=== PATIENT | male | born 1945 | race Caucasian/White ===

== ENCOUNTER 2016-12-26 14:53 | Outpatient (CLI) | payer MEDICARE ==
--- NOTE | 2016-12-26 18:31 | RAD ---
TWO VIEWS OF THE CHEST: 12/26/2016 COMPARISON: None. HISTORY: Hypertension. FINDINGS: No pneumothorax, pleural fluid, focal consolidation, or alveolar edema. The lungs are mildly hyperi nflated. No acute osseous abnormalities. IMPRESSION: Mild pulmonary hyperinflation with no lobar consolidation or alveolar edema. POS: [facility]
== END 2016-12-26 14:54 | disposition home or self-care (01) ==
LOC: SCSRAD 14:53
PROVIDERS: ATTEND Family Medicine
DX: I10 Essential (primary) hypertension (principal)
CPT/HCPCS: 71020

== ENCOUNTER 2018-06-11 08:27 | Outpatient (CLI) | payer MEDICARE ==
--- NOTE | 2018-06-11 09:21 | CT ---
CT ABDOMEN AND PELVIS WITH ORAL AND IV CONTRAST: HISTORY: Diverticulitis, right flank discomfort. Abdominal pain FINDINGS: The lung bases are unremarkable. There are changes of fatty infiltration of the liver without mass or abnormal biliary ductal dilatation. The patient is post cholecystectomy. There is a calcified granuloma in the spleen. The pancreas, adrenal glands and kidneys are unremarkable. A small amount of perinephric fluid is seen on either side. No free air, ascites or lymphadenopathy is identified in the abdomen or pelvis. There are vascular ca lcifications without evidence of aneurysmal dilatation of the abdominal aorta. An accessory right renal vein is present. The prostate is enlarged. There are degenerative changes in the spine. Hemangi omas noted in the vertebral bodies are L2 and T12 vertebrae. There is a small hiatal hernia. No pericolonic inflammatory changes are seen. There is incomplete dis tention of the proximal transverse colon. IMPRESSION: 1. No acute process. 2. Fatty liver 3. Small hiatal hernia 4. Prostatic enlargement
[2018-06-11] MEDS ORDERED: Iopamidol 370 76% 100 ML VIAL ONE (13:37)
== END 2018-06-11 08:28 | disposition home or self-care (01) ==
LOC: CT 08:27
PROVIDERS: ATTEND Family Medicine
DX: K57.92 Diverticulitis of intestine, part unspecified, without perforation or abscess without bleeding (principal); K76.0 Fatty (change of) liver, not elsewhere classified; K44.9 Diaphragmatic hernia without obstruction or gangrene; N40.0 Benign prostatic hyperplasia without lower urinary tract symptoms
CPT/HCPCS: 74177; 82565; Q9967

== ENCOUNTER 2019-04-17 16:11 | Outpatient (CLI) | payer MEDICARE ==
--- NOTE | 2019-04-17 16:54 | RAD ---
Abdomen 2 views HISTORY: Abdomen pain. Bloating. FINDINGS: Large amount of stool over the right colon. Moderately distended gas-filled loops of small bowel throughout the abdomen. No differential air-fluid levels or evidence of free intraperitoneal gas. Metallic clips overlie the gallbladder fossa. Degenerative changes lower lumbar spine. IMPRESSION: Constipation. Findings not suggestive of bowel obstruction. Status post cholecystectomy.
== END 2019-04-17 16:12 | disposition home or self-care (01) ==
LOC: SCSRAD 16:11
PROVIDERS: ATTEND Family Medicine
DX: R10.9 Unspecified abdominal pain (principal); K59.00 Constipation, unspecified; Z90.49 Acquired absence of other specified parts of digestive tract
CPT/HCPCS: 74019

== ENCOUNTER 2023-02-17 13:55 | Outpatient (CLI) | payer MEDICARE | END 2023-02-17 13:56 | disposition home or self-care (01) | LOC: BICRAD 13:55 | PROVIDERS: ATTEND Family Medicine | DX: M79.642 Pain in left hand (principal); M79.641 Pain in right hand; M19.042 Primary osteoarthritis, left hand; M19.041 Primary osteoarthritis, right hand ==